=== PATIENT | female | born 1970 | race Two or more races ===

== ENCOUNTER 2021-06-29 02:35 | Emergency (ER) | payer SELFPAY ==
[~2021-06-29] VITALS: Ht 172.7 cm; Wt 2.5 kg
--- NOTE | 2021-06-29 02:56 | NUR ---
PATIENT BIBSELF C/O HEART RACING. PATIENT HAS HX OF ANXIETY. PATIENT IS A/O X 4, RR EVEN AND UNLABORED, NO SOB NOTED. PATIENT CONNECTED TO CARDAIC AND POX MONITOR.
[2021-06-29 03:30] VITALS: BP 130/60
--- NOTE | 2021-06-29 03:30 | NUR ---
Patient discharged to home in stable condition. Written and verbal after care instructions given. Patient verbalizes understanding of instruction.
== END 2021-06-29 03:36 | disposition home or self-care (01) ==
LOC: ER 02:37
DX: F41.9 Anxiety disorder, unspecified (principal); I25.2 Old myocardial infarction; E78.00 Pure hypercholesterolemia, unspecified; Z88.0 Allergy status to penicillin
CPT/HCPCS: 71045-TC

== ENCOUNTER 2022-06-17 20:27 | Inpatient (IN) | payer BC ==
[~2022-06-17] VITALS: Ht 167.6 cm; Wt 79.4 kg
--- NOTE | 2022-06-17 20:55 | NUR ---
BIBS C/O INTERMITTENT CP, N/V, BURPING X 1400. PATIENT IS AAOX4. ABLE TO MAKE NEEDS KNOWN. VOMITED SEVERAL TIMES AT ER. ATTACHED TO MONITOR. VITALS CHECKED.
--- NOTE | 2022-06-17 21:00 | NUR ---
EKG DONE AT BEDSIDE
--- NOTE | 2022-06-17 21:05 | NUR ---
IV CANNULA G20 INSERTED ON LEFT AC. BLOOD DRAWN AND SENT TO LAB
--- NOTE | 2022-06-17 21:11 | NUR ---
SEEN BY DR TUCKER AT BEDSIDE
--- NOTE | 2022-06-17 21:51 | NUR ---
BROUGHT TO CT DEPT
[2022-06-17] MEDS ORDERED: IV NS 0.9% 500 ML BAG IV ONE (22:00)
[2022-06-17 22:02] LABS: BASOPHILS % (AUTO) 0.1 % (0.0-2.0); EOSINOPHILS % (AUTO) 0.8 % (0.0-6.0); HEMATOCRIT 39 % (33-45); HEMOGLOBIN 12.9 g/dL (11.5-14.8); LYMPHOCYTES # (AUTO) 2.5 K/uL (0.8-4.8); LYMPHOCYTES % (AUTO) 34.2 % (20.0-44.0); MEAN CORPUSCULAR HGB CONC 33 g/dl (31.0-36.0); MEAN CORPUSCULAR VOLUME 90 fL (82-100); MONOCYTES # (AUTO) 0.8 K/uL (0.1-1.30); MONOCYTES % (AUTO) 10.6 % (2.0-12.0); NEUTROPHILS # (AUTO) 3.9 K/uL (1.8-8.9); NEUTROPHILS % (AUTO) 54.3 % (43.0-81.0); PLATELET COUNT (AUTO) 226 K/uL (150-450); RED BLOOD CELL COUNT(AUTO) 4.37 MIL/uL (4.0-5.2); WHITE BLOOD COUNT (AUTO) 7.3 K/uL (4.3-11.0)
--- NOTE | 2022-06-17 22:07 | NUR ---
BROUGHT PT BACK FROM CT SCAN
[2022-06-17 22:22] LABS: ALANINE AMINOTRANSFERASE 28 U/L (12-78); ALBUMIN 3.9 g/dL (3.4-5.0); ALKALINE PHOSPHATASE 59 U/L (46-116); ASPARTATE AMINOTRANSFERASE 23 U/L (15-37); BILIRUBIN,DIRECT 0.1 mg/dL (0.0-0.2); BILIRUBIN,TOTAL 0.5 mg/dL (0.2-1.0); CALCIUM, SERUM 8.8 mg/dL (8.5-10.1); CARBON DIOXIDE 26 mmol/L (21-32); CHLORIDE 111 mmol/L (98-107); CREATININE 0.8 mg/dL (0.6-1.3); GLUCOSE 122 mg/dL (74-106); POTASSIUM 3.3 mmol/L (3.5-5.1); SODIUM SERUM 139 mmol/L (136-145); TOTAL PROTEIN, SERUM 7.2 g/dL (6.4-8.2); UREA NITROGEN, BLOOD 14 mg/dL (7-18)
--- NOTE | 2022-06-17 22:22 | NUR ---
XRAY DONE AT BEDSIDE
--- NOTE | 2022-06-17 22:41 | NUR ---
COVID SWAB DONE AND SENT TO LAB
[2022-06-17] MEDS ORDERED: ASPIRIN 325 MG TABLET ONE (22:56)
[2022-06-17] MEDS ORDERED: LORAZEPAM 1 MG TABLET ONE (22:56)
[2022-06-17] MEDS ORDERED: ASPIRIN 325 MG TABLET PO ONE (23:00)
[2022-06-17] MEDS ORDERED: LORAZEPAM 1 MG TABLET PO ONE (23:00)
[2022-06-17 23:03] LABS: BILIRUBIN,URINE NEGATIVE (NEGATIVE); COLOR,URINE YELLOW (YELLOW); LEUKOCYTE ESTERASE ,URINE TRACE (NEGATIVE); NITRITE, URINE NEGATIVE (NEGATIVE); PH,URINE 5.5 (5.0-8.0); PROTEIN,URINE NEGATIVE (NEGATIVE); UGLUCOSE NEGATIVE (NEGATIVE); UROBILINOGEN,URINE 0.2 EU/dL (0.2)
--- NOTE | 2022-06-17 23:16 | NUR ---
ELECTRIC FAN ASSEMBLER AT BEDSIDE
[2022-06-17 23:21] LABS: RBC,URINE NONE SEEN /HPF (0-2)
[2022-06-17 23:22] LABS: BACTERIA,URINE Few /HPF (None Seen); SQUAMOUS EPITHELIAL CELL,UR Few /HPF (None Seen)
--- NOTE | 2022-06-17 23:58 | NUR ---
TROP [phone]
[2022-06-18] VITALS (7 sets, daily range): BP systolic 102–119; BP diastolic 54–76
[2022-06-18] MEDS ORDERED: MORPHINE SULFATE INJ 2 MG/ML DISP.SYRIN IV PRN (00:30)
[2022-06-18] MEDS ORDERED: MAGNESIUM HYDROXIDE 30 ML UDC PO PRN (00:30)
[2022-06-18] MEDS ORDERED: NITROGLYCERIN 0.4 MG/TAB BOTTLE SL ONE ×2 (00:30→13:30)
[2022-06-18] MEDS ORDERED: Z GUARD REMEDY 4 OZ OINT TP PRN (00:30)
[2022-06-18] MEDS ORDERED: ZOLPIDEM TARTRATE 5 MG TABLET PO PRN (00:30)
[2022-06-18] MEDS ORDERED: ONDANSETRON HCL/PF 4 MG/2 ML VIAL IVP PRN (00:30)
[2022-06-18] MEDS ORDERED: MAG HYDROX/AL HYDROX/SIMETH 30 ML UDC PO PRN (00:30)
[2022-06-18] MEDS ORDERED: ENOXAPARIN SODIUM 40 MG/0.4 ML DISP.SYRIN SQ SCH (00:30)
[2022-06-18] MEDS ORDERED: ACETAMINOPHEN 325 MG TABLET PO PRN (00:30)
--- NOTE | 2022-06-18 00:49 | NUR ---
REPORT GIVEN TO [place]
[2022-06-18] MEDS ORDERED: LORAZEPAM 0.5 MG TABLET PO PRN (01:00)
[2022-06-18] MEDS ORDERED: POTASSIUM CHLORIDE 20 MEQ TAB.PRT.SR PO ONE (01:00)
--- NOTE | 2022-06-18 01:00 | NUR ---
KITCHEN UTILITY ASSOCIATE NOTES PATIENT BROUGHT IN UNIT VIA STRETCHER AT AROUND THIS TIME. ACCOMPANIED BY 1 ER PERSONNEL. PATIENT IS A/OX4. NO S/S OF APPARENT DISTRESS ON ROOM AIR. PATIENT C/O "A LITTLE" CHEST PAIN THAT IS NON-RADIATING. DENIES ANY N/V AT THIS TIME. TELE MONITOR READING SR IN THE 60'S. NEW ID BAND ON PATIENT. BELONGINGS CHECKED. PATIENT WISHES TO BE FULL CODE AT THIS TIME. UP-TO-DATE WITH HER FLU AND COVID IMMUNIZATIONS. DENIES SMOKING AND ALCOHOL ABUSE. PATIENT HAS IV ACCESS ON LT. AC #20G. PATIENT ORIENTED IN THE UNIT AND THE USE OF CALL LIGHT. AMBULATORY WITH SAFETY GAIT. PATIENT REFUSED TO BE IN A HOSPITAL GOWN BECAUSE PER HER SHE WANTS TO BE COMFORTABLE. PATIENT HAS INTACT SKIN. NEEDS ATTENDED FOR NOW. WILL FOLLOW THROUGH DOCTOR'S ORDERS AND CONTINUE WITH THE PLAN OF CARE FOR PATIENT.
--- NOTE | 2022-06-18 01:08 | NUR ---
PT TRANSFERRED TO 312 ON CARDIAC PER ACLS
--- NOTE | 2022-06-18 01:52 | NUR ---
noc rn note Patient c/o a little chest pain that is non-radiating per patient. given Nitro as ordered one time. bp 113/54 hr- 76. patient teaching done about risk and benefits of nitro. patient acknowledged. will re-assess after 5 min.
--- NOTE | 2022-06-18 01:58 | NUR ---
noc rn note- re-assessment bp 98/57, patient state relief of chest pain. will continue to monitor. reading sb on tele monitor with 57 bpm.
--- NOTE | 2022-06-18 05:58 | NUR ---
ORTHOSTATIC BP LYING DOWN- 116/61 HR-69 SITTING- 119/72 HR-70 STANDING 104/76 HR-86 PATIENT DENIES ANY SYNCOPE FEELING/ LIGHT HEADEDNESS DURING AND AFTER ASSESSMENT.
--- NOTE | 2022-06-18 07:24 | NUR ---
WAREHOUSE SHIPPING ASSOCIATE OPENING NOTES RECEIVED PT AWAKE IN BED IN NO ACUTE SIGN SOF DISTRESS. A/O x4, ABLE TO MAKE NEEDS KNOWN, DENIES PAIN OR ANY DISCOMFORTS AT THIS TIME. ON ROOM AIR, TOLERATING WELL WITH NO S/S OF RESPIRATORY DISTRESS. ON TELE MONITORING SHOWING NSR, HR 60 AT THIS TIME, NO C/O CARDIAC DISTRESS VOICED. IV ACCESS ON LAC G#20 INTACT, PATENT AND FLUSHES WELL. SAFETY MEASURES IN PLACE: BED LOCKED AND IN LOWEST POSITION, SIDE RAILS UP x2, CALL LIGHT WITHIN REACH. WILL CONTINUE TO MONITOR PT ACCORDINGLY.
--- NOTE | 2022-06-18 07:58 | NUR ---
RN NOTES RECEIVED CALL FROM DEPUTY SHERIFF/INVESTIGATOR JUNIOR PATEL THAT PT STILL WITH CRITICAL HIGH TROPONIN 314, DR RAMACHANDRAN MADE AWARE WITH NO NEW ORDER MADE AT THIS TIME.
[2022-06-18] MEDS ORDERED: CLON1TAB12 PO (08:53)
[2022-06-18] MEDS ORDERED: ROSU20TA32 PO (08:53)
[2022-06-18] MEDS ORDERED: ASPIRIN 81 MG TAB.CHEW PO SCH ×2 (09:00→09:30)
[2022-06-18] MEDS ORDERED: PANTOPRAZOLE 40 MG VIAL IV SCH (09:00)
[2022-06-18] MEDS ORDERED: ASPI-1169 PO (09:09)
[2022-06-18] MEDS ORDERED: clonazePAM 1 MG TABLET PO PRN (09:30)
[2022-06-18] MEDS ORDERED: METOPROLOL TARTRATE 25 MG TABLET PO SCH (09:30)
[2022-06-18] MEDS ORDERED: IOHEXOL-350 100 ML VIAL IV ONE (10:53)
[2022-06-18] MEDS ORDERED: METOPROLOL TARTRATE INJ 5 MG/5 ML AMPUL ONE (10:54)
[2022-06-18] MEDS ORDERED: NITROGLYCERIN 0.4 MG/TAB BOTTLE ONE (10:54)
[2022-06-18 10:56] LABS: THYROID STIMULATING HORMONE 2.292 uIU/mL (0.358-3.74)
[2022-06-18 10:57] LABS: MAGNESIUM 2.3 mg/dL (1.8-2.4); PHOSPHORUS 3.8 mg/dL (2.5-4.9)
[2022-06-18] MEDS ORDERED: METOPROLOL TARTRATE INJ 5 MG/5 ML AMPUL IVP PRN (13:30)
--- NOTE | 2022-06-18 13:42 | NUR ---
RN NOTES [facility] PROCEDURE WELL TOLERATED BY THE PT. PT IS AAOX4, NOT IN RESPIRATORY DISTRESS, V/S STABLE, KEPT RESTED AND COMFORTABLE. REPORT GIVEN TO GREY STALLWORTH FOR MILDRED.
--- NOTE | 2022-06-18 16:44 | NUR ---
RN NOTES [facility] RESULTS SHOWS NO SIGNIFICANT CORONARY ARTERY CALCIFICATION AND DISEASE. DR RAMACHANDRAN MADE AWARE AND CLEARED PT FOR DC--HOME. DR KINNEY MADE AWARE TO PUT DOWN THE DC ORDER.
[2022-06-18] MEDS ORDERED: ATORVASTATIN 40 MG TABLET PO SCH (18:00)
--- NOTE | 2022-06-18 18:08 | NUR ---
FIRE EXTINGUISHER INSTALLER NOTES PT DISCHARGED HOME IN STABLE CONDITION. A/O X4. ABLE TO MAKE NEEDS KNOWN, AMBULATORY WITH STEADY GAIT. V/S TAKEN, STABLE AND RECORDED. PT WITH INTACT SKIN WITH NO IMPAIRMENTS. ALL BELONGINGS ACCOUNTED FOR AND PT SIGNED BELONGINGS LIST. IV ACCESS ON LAC G#20 REMOVED WITH NO ACTIVE BLEEDING NOTED, DRY PRESSURE DRESSING APPLIED AT SITE. HEALTH TEACHINGS/DISCHARGED INSTRUCTIONS GIVEN TO PT AND VERBALIZED UNDERSTANDING. EXIT FOLDER HANDED TO PT. TELE-BOX REMOVED FROM PT AND HANDED TO DALIA, DISTANCE EDUCATION DIRECTOR. PT LEFT UNIT @ 1755 AMBULATORY ACCOMPANIED BY ME AND HER DAUGHTER NOLAN. AND CHARGE NURSE AWARE OF DISCHARGE.
== END 2022-06-18 18:00 | disposition home or self-care (01) | DRG 282 ==
LOC: ER 20:30 → TELE 06-18 00:29
PROVIDERS: ADMIT Nurse Practitioner Acute Care; ATTEND Student in an Organized Health Care Education/Training Program
DX: I21.4 Non-ST elevation (NSTEMI) myocardial infarction (principal); E87.6 Hypokalemia; F41.9 Anxiety disorder, unspecified; E78.00 Pure hypercholesterolemia, unspecified; I51.7 Cardiomegaly; Z86.16 Personal history of COVID-19; K57.30 Diverticulosis of large intestine without perforation or abscess without bleeding; Z88.0 Allergy status to penicillin
CPT/HCPCS: 36415; 71045-TC; 75574; 80048-TC; 80076-TC; 81001; 83735-TC; 84100-TC; 84439-TC; 84443-TC; 84484-TC; 85025-TC; 85378-TC; 93307-TC; C9113; C9803; G0378; J1650; J3490; J7040; Q9967

== ENCOUNTER 2024-09-02 04:01 | Inpatient (IN) | payer BC ==
[~2024-09-02] VITALS: Ht 165.1 cm; Wt 79.4 kg
[~2024-09-02 04:01] MED LIST: ASPI-1169 PO; CLON1TAB12 PO; ROSU20TA32 PO
[2024-09-02 04:47] LABS: BASOPHILS % (AUTO) 0.1 % (0.0-2.0); EOSINOPHILS # (AUTO) 0.1 K/uL (0.0-0.7); EOSINOPHILS % (AUTO) 1.1 % (0.0-6.0); HEMATOCRIT 39 % (33-45); HEMOGLOBIN 13.1 g/dL (11.5-14.8); LYMPHOCYTES % (AUTO) 35.1 % (20.0-44.0); MEAN CORPUSCULAR HEMOGLOBIN 30 PG (26.0-33.0); MEAN CORPUSCULAR HGB CONC 34 g/dl (31.0-36.0); MEAN CORPUSCULAR VOLUME 90 fL (82-100); MONOCYTES # (AUTO) 0.5 K/uL (0.1-1.30); MONOCYTES % (AUTO) 9.5 % (2.0-12.0); NEUTROPHILS % (AUTO) 54.2 % (43.0-81.0); PLATELET COUNT (AUTO) 208 K/uL (150-450); RED BLOOD CELL COUNT(AUTO) 4.36 MIL/uL (4.0-5.2); RED CELL DISTRIBUTION WIDTH 13.2 % (11.5-15.0); WHITE BLOOD COUNT (AUTO) 5.6 K/uL (4.3-11.0)
[2024-09-02 05:07] LABS: APPEARANCE,URINE CLEAR (CLEAR); BILIRUBIN,URINE NEGATIVE (NEGATIVE); BLOOD, URINE NEGATIVE Ery/uL (NEGATIVE); CALCIUM, SERUM 8.9 mg/dL (8.5-10.1); COLOR,URINE YELLOW (YELLOW); CREATININE 0.9 mg/dL (0.6-1.3); KETONES,URINE NEGATIVE (NEGATIVE); LEUKOCYTE ESTERASE ,URINE NEGATIVE (NEGATIVE); NITRITE, URINE NEGATIVE (NEGATIVE); PH,URINE 5.5 (5.0-8.0); POTASSIUM 3.7 mmol/L (3.5-5.1); PROTEIN,URINE NEGATIVE (NEGATIVE); UGLUCOSE NEGATIVE (NEGATIVE); UROBILINOGEN,URINE 0.2 EU/dL (0.2)
[2024-09-02 05:21] LABS: ALBUMIN 3.8 g/dL (3.4-5.0); BILIRUBIN,TOTAL 0.5 mg/dL (0.2-1.0); TOTAL PROTEIN, SERUM 7.2 g/dL (6.4-8.2)
[2024-09-02] MEDS ORDERED: NITROGLYCERIN 0.4 MG/TAB BOTTLE SL PRN (06:00)
[2024-09-02] MEDS ORDERED: Z GUARD REMEDY 4 OZ OINT TP PRN (06:00)
[2024-09-02] MEDS ORDERED: MAGNESIUM HYDROXIDE 30 ML UDC PO PRN (06:00)
[2024-09-02] MEDS ORDERED: ONDANSETRON HCL/PF 4 MG/2 ML VIAL IVP PRN (06:00)
[2024-09-02] MEDS ORDERED: ASPIRIN 325 MG TABLET ONE (06:16)
[2024-09-02] MEDS: ASPIRIN 325 MG TABLET PO ONE (06:17)
[2024-09-02 07:34] VITALS: O2SAT 95
[2024-09-02 08:30] VITALS: BP 116/63; TEMP 98.1; O2SAT 96
[2024-09-02] MEDS: PANTOPRAZOLE 40 MG TABLET.DR PO SCH (09:00)
[2024-09-02] MEDS ORDERED: ASPIRIN 81 MG TAB.CHEW PO SCH (09:00)
[2024-09-02] MEDS ORDERED: CT SWABBABLE VALVE TRANS SET 1 EA INFUS.SET MC ONE (10:06)
[2024-09-02] MEDS ORDERED: IOHEXOL-350 100 ML VIAL IV ONE (10:06)
[2024-09-02] MEDS ORDERED: IV NS 0.9% 250 ML IV ONE (10:06)
[2024-09-02] MEDS ORDERED: METOPROLOL TARTRATE INJ 5 MG/5 ML AMPUL ONE (10:07)
[2024-09-02] MEDS ORDERED: NITROGLYCERIN 0.4 MG/TAB BOTTLE ONE (10:07)
[2024-09-02] MEDS: METOPROLOL TARTRATE INJ 5 MG/5 ML AMPUL IVP PRN (10:47)
[2024-09-02] MEDS: NITROGLYCERIN 0.4 MG/TAB BOTTLE SL ONE (10:53)
[2024-09-02 13:30] VITALS: BP 116/63; TEMP 98.1; O2SAT 96
[2024-09-02] MEDS: ACETAMINOPHEN 325 MG TABLET PO PRN (18:13)
[2024-09-02 20:00] VITALS: BP 105/51; TEMP 98.1; O2SAT 96
[2024-09-02] MEDS: ATORVASTATIN 10 MG TABLET PO SCH (21:50)
[2024-09-02] MEDS: ENOXAPARIN SODIUM 40 MG/0.4 ML DISP.SYRIN SQ SCH (21:51)
[2024-09-03] VITALS: BP 97/55; TEMP 97.7; O2SAT 96
[2024-09-03] MEDS: TEMAZEPAM 7.5 MG CAPSULE PO PRN (00:13)
[2024-09-03 04:00] VITALS: BP 105/64; TEMP 97.9; O2SAT 96
[2024-09-03 07:00] VITALS: BP 117/68; TEMP 98.2; O2SAT 97
[2024-09-03 07:06] LABS: BASOPHILS % (AUTO) 0.1 % (0.0-2.0); EOSINOPHILS # (AUTO) 0.1 K/uL (0.0-0.7); EOSINOPHILS % (AUTO) 1.5 % (0.0-6.0); HEMATOCRIT 37 % (33-45); HEMOGLOBIN 12.9 g/dL (11.5-14.8); LYMPHOCYTES # (AUTO) 1.9 K/uL (0.8-4.8); LYMPHOCYTES % (AUTO) 34.2 % (20.0-44.0); MEAN CORPUSCULAR HEMOGLOBIN 31 PG (26.0-33.0); MEAN CORPUSCULAR HGB CONC 35 g/dl (31.0-36.0); MEAN CORPUSCULAR VOLUME 89 fL (82-100); MONOCYTES # (AUTO) 0.5 K/uL (0.1-1.30); MONOCYTES % (AUTO) 9.9 % (2.0-12.0); NEUTROPHILS % (AUTO) 54.3 % (43.0-81.0); PLATELET COUNT (AUTO) 198 K/uL (150-450); RED BLOOD CELL COUNT(AUTO) 4.22 MIL/uL (4.0-5.2); RED CELL DISTRIBUTION WIDTH 13.3 % (11.5-15.0); WHITE BLOOD COUNT (AUTO) 5.5 K/uL (4.3-11.0)
[2024-09-03 07:55] LABS: CALCIUM, SERUM 9.1 mg/dL (8.5-10.1); CREATININE 0.8 mg/dL (0.6-1.3); MAGNESIUM 2.2 mg/dL (1.8-2.4); PHOSPHORUS 3.8 mg/dL (2.5-4.9); POTASSIUM 3.7 mmol/L (3.5-5.1)
[2024-09-03] MEDS: ASPIRIN 81 MG TAB.CHEW PO SCH (08:54)
== END 2024-09-03 14:15 | disposition home or self-care (01) | DRG 282 ==
LOC: ER 04:02 → TELE 06:07 → MED 09-03 10:39
PROVIDERS: ADMIT Nurse Practitioner Family; ATTEND Nurse Practitioner Family
DX: I21.4 Non-ST elevation (NSTEMI) myocardial infarction (principal); F41.9 Anxiety disorder, unspecified; I25.2 Old myocardial infarction; I25.10 Atherosclerotic heart disease of native coronary artery without angina pectoris; E78.00 Pure hypercholesterolemia, unspecified; E78.5 Hyperlipidemia, unspecified; Z88.0 Allergy status to penicillin; Z79.82 Long term (current) use of aspirin; Z79.899 Other long term (current) drug therapy; E66.3 Overweight
CPT/HCPCS: 36415; 71045-TC; 75574; 80048-TC; 80053-TC; 80061-TC; 83735-TC; 83880; 84100-TC; 84484-TC; 85025-TC; 93307-TC; G0378; J1650; J3490; J7050; Q9967

== ENCOUNTER 2024-11-25 20:32 | Inpatient (IN) | payer BC ==
[~2024-11-25] VITALS: Ht 165.1 cm; Wt 79.4 kg
[~2024-11-25 20:32] MED LIST changes: -ASPI-1169 PO
[2024-11-25] MEDS ORDERED: ONDANSETRON HCL/PF 4 MG/2 ML VIAL ONE (22:22)
[2024-11-25] MEDS ORDERED: KETOROLAC TROMETHAMINE INJ 30 MG/ML VIAL ONE (22:23)
[2024-11-25] MEDS: IV NS 0.9% 1,000 ML BAG IV ONE (22:24)
[2024-11-25] MEDS: ONDANSETRON HCL/PF 4 MG/2 ML VIAL IVP ONE (22:30)
[2024-11-25] MEDS: KETOROLAC TROMETHAMINE 15 MG/ML VIAL IV ONE (22:31)
[2024-11-25 22:46] LABS: APPEARANCE,URINE CLEAR (CLEAR); BILIRUBIN,URINE NEGATIVE (NEGATIVE); BLOOD, URINE NEGATIVE Ery/uL (NEGATIVE); COLOR,URINE YELLOW (YELLOW); KETONES,URINE NEGATIVE (NEGATIVE); LEUKOCYTE ESTERASE ,URINE TRACE (NEGATIVE); NITRITE, URINE NEGATIVE (NEGATIVE); PROTEIN,URINE NEGATIVE (NEGATIVE); UGLUCOSE NEGATIVE (NEGATIVE); UROBILINOGEN,URINE 0.2 EU/dL (0.2)
[2024-11-25 22:49] LABS: PREGNANCY TEST URINE QUAL NEGATIVE (NEGATIVE)
[2024-11-25 23:02] LABS: ADD URINE CULTURE NO; BACTERIA,URINE Rare /HPF (None Seen); RBC,URINE 0-2 /HPF (0-2); SQUAMOUS EPITHELIAL CELL,UR Rare /HPF (None Seen); WBC,URINE 0-2 /HPF (0-3)
[2024-11-25 23:23] LABS: BASOPHILS % (AUTO) 0.1 % (0.0-2.0); EOSINOPHILS % (AUTO) 0.6 % (0.0-6.0); HEMATOCRIT 43 % (33-45); HEMOGLOBIN 14.3 g/dL (11.5-14.8); LYMPHOCYTES # (AUTO) 1.6 K/uL (0.8-4.8); LYMPHOCYTES % (AUTO) 23.5 % (20.0-44.0); MEAN CORPUSCULAR HEMOGLOBIN 30 PG (26.0-33.0); MEAN CORPUSCULAR HGB CONC 33 g/dl (31.0-36.0); MEAN CORPUSCULAR VOLUME 89 fL (82-100); MONOCYTES # (AUTO) 0.7 K/uL (0.1-1.30); MONOCYTES % (AUTO) 9.9 % (2.0-12.0); NEUTROPHILS # (AUTO) 4.4 K/uL (1.8-8.9); NEUTROPHILS % (AUTO) 65.9 % (43.0-81.0); PLATELET COUNT (AUTO) 223 K/uL (150-450); RED BLOOD CELL COUNT(AUTO) 4.85 MIL/uL (4.0-5.2); RED CELL DISTRIBUTION WIDTH 13.2 % (11.5-15.0); WHITE BLOOD COUNT (AUTO) 6.6 K/uL (4.3-11.0)
[2024-11-25 23:45] LABS: CALCIUM, SERUM 9.7 mg/dL (8.5-10.1); CARBON DIOXIDE 29 mmol/L (21-32); CHLORIDE 100 mmol/L (98-107); CREATININE 0.8 mg/dL (0.6-1.3); GLUCOSE 117 mg/dL (74-106); POTASSIUM 3.6 mmol/L (3.5-5.1); SODIUM SERUM 136 mmol/L (136-145); UREA NITROGEN, BLOOD 15 mg/dL (7-18)
[2024-11-25 23:46] LABS: INR 0.97 (0.91-1.10); PARTIAL THROMBOPLASTIN TIME 26.2 SEC (24.3-34.3); PROTHROMBIN TIME 10.3 SECS (9.2-11.1)
[2024-11-25 23:58] LABS: ALANINE AMINOTRANSFERASE 22 U/L (12-78); ALBUMIN 4.1 g/dL (3.4-5.0); ALKALINE PHOSPHATASE 69 U/L (46-116); ASPARTATE AMINOTRANSFERASE 20 U/L (15-37); BILIRUBIN,DIRECT 0.1 mg/dL (0.0-0.2); BILIRUBIN,TOTAL 0.4 mg/dL (0.2-1.0); LIPASE 55 U/L (16-77); TOTAL PROTEIN, SERUM 7.7 g/dL (6.4-8.2)
[2024-11-26] MEDS: ASPIRIN 325 MG TABLET PO ONE
[2024-11-26] MEDS ORDERED: ASPIRIN 325 MG TABLET ONE
[2024-11-26] MEDS: LORAZEPAM INJ 2 MG/ML VIAL IV ONE (00:30)
[2024-11-26] MEDS ORDERED: ACETAMINOPHEN 325 MG TABLET PO PRN (01:00)
[2024-11-26] MEDS ORDERED: HYDROCODONE/APAP 5/325MG TABLET PO PRN (01:00)
[2024-11-26] MEDS: IV NS 0.9% 1,000 ML IV SCH (01:00)
[2024-11-26] MEDS ORDERED: MAGNESIUM HYDROXIDE 30 ML UDC PO PRN (01:00)
[2024-11-26] MEDS ORDERED: ONDANSETRON HCL/PF 4 MG/2 ML VIAL IVP PRN (01:00)
[2024-11-26] MEDS ORDERED: LORAZEPAM INJ 2 MG/ML VIAL ONE (01:28)
[2024-11-26 04:00] VITALS: BP 103/69; TEMP 97.7; O2SAT 96
[2024-11-26] MEDS: MAG HYDROX/AL HYDROX/SIMETH 30 ML UDC PO PRN (06:45)
[2024-11-26 07:41] LABS: BASOPHILS % (AUTO) 0.1 % (0.0-2.0); EOSINOPHILS % (AUTO) 0.5 % (0.0-6.0); HEMATOCRIT 39 % (33-45); HEMOGLOBIN 12.9 g/dL (11.5-14.8); LYMPHOCYTES # (AUTO) 1.8 K/uL (0.8-4.8); LYMPHOCYTES % (AUTO) 34.9 % (20.0-44.0); MEAN CORPUSCULAR HEMOGLOBIN 30 PG (26.0-33.0); MEAN CORPUSCULAR HGB CONC 33 g/dl (31.0-36.0); MEAN CORPUSCULAR VOLUME 89 fL (82-100); MONOCYTES # (AUTO) 0.6 K/uL (0.1-1.30); MONOCYTES % (AUTO) 11.9 % (2.0-12.0); NEUTROPHILS # (AUTO) 2.7 K/uL (1.8-8.9); NEUTROPHILS % (AUTO) 52.6 % (43.0-81.0); PLATELET COUNT (AUTO) 200 K/uL (150-450); RED BLOOD CELL COUNT(AUTO) 4.35 MIL/uL (4.0-5.2); RED CELL DISTRIBUTION WIDTH 12.9 % (11.5-15.0); WHITE BLOOD COUNT (AUTO) 5.1 K/uL (4.3-11.0)
[2024-11-26 07:47] LABS: CALCIUM, SERUM 8.6 mg/dL (8.5-10.1); CREATININE 0.7 mg/dL (0.6-1.3); MAGNESIUM 2.2 mg/dL (1.8-2.4); PHOSPHORUS 3.7 mg/dL (2.5-4.9); POTASSIUM 4.1 mmol/L (3.5-5.1)
[2024-11-26 08:00] VITALS: BP 109/59; TEMP 98.6; O2SAT 95
[2024-11-26] MEDS: ASPIRIN 81 MG TAB.CHEW PO SCH (08:04)
[2024-11-26] MEDS: PANTOPRAZOLE 40 MG VIAL IV SCH (08:04)
[2024-11-26] MEDS ORDERED: ZOLP6.252 PO (08:27)
[2024-11-26 12:00] VITALS: BP 112/66; TEMP 98.4; O2SAT 96
[2024-11-26] MEDS ORDERED: NITR100C6 PO (14:59)
== END 2024-11-26 17:40 | disposition home or self-care (01) | DRG 392 ==
LOC: ER 20:34 → TELE1 11-26 01:08
PROVIDERS: ADMIT Internal Medicine; ATTEND Internal Medicine
DX: K30 Functional dyspepsia (principal); F41.9 Anxiety disorder, unspecified; E66.9 Obesity, unspecified; Z88.0 Allergy status to penicillin; R79.89 Other specified abnormal findings of blood chemistry; Z68.29 Body mass index [BMI] 29.0-29.9, adult; E78.5 Hyperlipidemia, unspecified
CPT/HCPCS: 36415; 71045-TC; 76705-TC; 80048-TC; 80061-TC; 80076-TC; 81001; 83690-TC; 83735-TC; 84100-TC; 84484-TC; 84703-TC; 85025-TC; 85730-TC; 87081-TC; A4223; G0378; J1885; J2060; J2405; J2470; J7030

== ENCOUNTER 2025-02-12 07:45 | Inpatient (IN) | payer BC ==
[~2025-02-12] VITALS: Ht 165.1 cm; Wt 78.5 kg
[~2025-02-12 07:45] MED LIST changes: -ROSU20TA32 PO; +ZOLP6.252 PO
[2025-02-12] MEDS ORDERED: ASPIRIN 325 MG TABLET ONE (08:02)
[2025-02-12] MEDS: ASPIRIN 325 MG TABLET PO ONE (08:05)
[2025-02-12 08:06] LABS: PLATELET COUNT (AUTO) 280 K/uL (150-450); RED BLOOD CELL COUNT(AUTO) 4.94 MIL/uL (4.0-5.2); RED CELL DISTRIBUTION WIDTH 13.8 % (11.5-15.0); WHITE BLOOD COUNT (AUTO) 7.4 K/uL (4.3-11.0)
[2025-02-12 08:14] LABS: CALCIUM, SERUM 10.5 mg/dL (8.5-10.1); CREATININE 0.8 mg/dL (0.6-1.3); SODIUM SERUM 141 mmol/L (136-145); UREA NITROGEN, BLOOD 14 mg/dL (7-18)
[2025-02-12 08:26] LABS: ASPARTATE AMINOTRANSFERASE 20 U/L (15-37); NT-PRO BNP 31 pg/mL (0-125); TOTAL PROTEIN, SERUM 8.4 g/dL (6.4-8.2)
[2025-02-12] MEDS ORDERED: oxyCODONE/APAP (5/325 MG) 1 UDTAB TABLET ONE (08:43)
[2025-02-12] MEDS: oxyCODONE/APAP (5/325 MG) 1 UDTAB TABLET PO ONE (08:46)
[2025-02-12] MEDS ORDERED: NITROGLYCERIN 0.4 MG/TAB BOTTLE SL PRN (10:30)
[2025-02-12] MEDS ORDERED: hydrALAZINE HCL IV 20 MG VIAL IV PRN (11:30)
[2025-02-12] MEDS: ONDANSETRON HCL/PF 4 MG/2 ML VIAL IVP PRN (12:10)
[2025-02-12] MEDS: MORPHINE SULFATE INJ 2 MG/ML DISP.SYRIN IV PRN (12:59)
[2025-02-12] MEDS ORDERED: TRAZ-257 PO (13:33)
[2025-02-12] MEDS ORDERED: BUSP10TA35 PO (13:33)
[2025-02-12] MEDS ORDERED: ROSU20TA32 PO (13:33)
[2025-02-12] MEDS ORDERED: LORA-258 PO (13:33)
[2025-02-12 20:00] VITALS: BP 123/66; TEMP 97.9; O2SAT 100
[2025-02-12] MEDS: HEPARIN SODIUM, PORCINE 5000 UNITS/1 ML VIAL SQ SCH (20:14)
[2025-02-12] MEDS: ACETAMINOPHEN 325 MG TABLET PO PRN (20:24)
[2025-02-13] VITALS: BP 100/55; TEMP 97.6; O2SAT 98
[2025-02-13] MEDS: ZOLPIDEM TARTRATE 5 MG TABLET PO PRN (00:59)
[2025-02-13 04:00] VITALS: BP 93/55; TEMP 97.5; O2SAT 98
[2025-02-13 07:19] LABS: PLATELET COUNT (AUTO) 233 K/uL (150-450); RED BLOOD CELL COUNT(AUTO) 4.25 MIL/uL (4.0-5.2); RED CELL DISTRIBUTION WIDTH 13.6 % (11.5-15.0); WHITE BLOOD COUNT (AUTO) 5.4 K/uL (4.3-11.0)
[2025-02-13 07:47] LABS: ASPARTATE AMINOTRANSFERASE 15.0 U/L (15-37); CALCIUM, SERUM 8.9 mg/dL (8.5-10.1); CREATININE 0.8 mg/dL (0.6-1.3); PHOSPHORUS 4.2 mg/dL (2.5-4.9); SODIUM SERUM 140.0 mmol/L (136-145); TOTAL PROTEIN, SERUM 6.8 g/dL (6.4-8.2); UREA NITROGEN, BLOOD 18.0 mg/dL (7-18)
[2025-02-13 08:00] VITALS: BP 102/54; TEMP 98.1; O2SAT 97
[2025-02-13] MEDS ORDERED: LORAZEPAM 0.5 MG TABLET PO PRN (10:30)
[2025-02-13] MEDS ORDERED: PARO20TA7 PO (11:50)
[2025-02-13] MEDS ORDERED: PARO-64 PO (11:50)
[2025-02-13 12:00] VITALS: BP 114/64; TEMP 96.9; O2SAT 96
[2025-02-13] MEDS ORDERED: TRAZODONE 50 MG TABLET PO SCH (22:00)
[2025-02-14] MEDS ORDERED: ATORVASTATIN 40 MG TABLET PO SCH (09:00)
== END 2025-02-13 14:00 | disposition home or self-care (01) | DRG 281 ==
LOC: ER 08:04 → TELE 10:21
PROVIDERS: ADMIT Internal Medicine; ATTEND Internal Medicine
DX: I21.4 Non-ST elevation (NSTEMI) myocardial infarction (principal); I50.32 Chronic diastolic (congestive) heart failure; E78.00 Pure hypercholesterolemia, unspecified; F41.9 Anxiety disorder, unspecified; I25.10 Atherosclerotic heart disease of native coronary artery without angina pectoris; E78.5 Hyperlipidemia, unspecified; I25.2 Old myocardial infarction; Z98.891 History of uterine scar from previous surgery; Z88.0 Allergy status to penicillin; M85.80 Other specified disorders of bone density and structure, unspecified site; Z79.899 Other long term (current) drug therapy
CPT/HCPCS: 36415; 71045-TC; 80048-TC; 80053-TC; 80076-TC; 83690-TC; 83735-TC; 83880; 84100-TC; 84484-TC; 85025-TC; G0378; J1644; J2270; J2405